=== PATIENT | male | born 1965 | race Caucasian/White ===

== ENCOUNTER 2017-09-15 13:18 | Outpatient (CLI) | payer OTHER ==
--- NOTE | 2017-09-15 13:53 | RAD ---
CHEST TWO VIEWS: History: Dyspnea. Comparison: None available. FINDINGS: Cardiac silhouette and pulmonary vasculature are unremarkable. Mediastinum is midline. No confluent a irspace consolidation, pneumothorax, or pleural fluid. IMPRESSION: No active cardiopulmonary abnormalities are demonstrated. POS: [facility]
== END 2017-09-15 13:19 | disposition home or self-care (01) ==
LOC: RAD 13:18
PROVIDERS: ATTEND Physician Assistant
DX: Z51.81 Encounter for therapeutic drug level monitoring (principal); Z79.899 Other long term (current) drug therapy
CPT/HCPCS: 71046

== ENCOUNTER 2018-10-25 07:39 | Outpatient (CLI) | payer OTHER ==
--- NOTE | 2018-10-25 10:10 | RAD ---
XR Chest Pa Lat STANDARD HISTORY: Cough COMPARISON: 09/15/2017 FINDINGS: The heart size is normal. The lungs are well expanded without focal areas of consolidation, pneumothorax or pleural effusions. IMPRESSION: No radiographic evidence of acute cardiopulmonary process.
== END 2018-10-25 07:40 | disposition home or self-care (01) ==
LOC: RAD 07:39
PROVIDERS: ATTEND Internal Medicine
DX: R05 Cough (principal)
CPT/HCPCS: 71046

== ENCOUNTER 2019-02-28 08:35 | Outpatient (CLI) | payer OTHER ==
[2019-02-28 10:45] LABS: Bacteria/HPF None Seen HPF (None Seen); Bilirubin Negative (Negative); Blood, Urine Negative (Negative); Clarity Clear (Clear); Glucose, Urine (Dipstick) Normal (Negative); Leukocyte Negative Leu/uL (Negative); Nitrite Negative (Negative); Protein, Urine (Dipstick) Negative (Neg-Trace); RBC/HPF 0-3 HPF (0-3); Squamous Epithelial None Seen HPF (0-3); Urobilinogen Normal mg/dL (Less than 2); WBC/HPF 0-3 HPF (0-3)
[2019-02-28 10:48] LABS: Prothrombin Time 12.7 SEC (12.0-14.7)
== END 2019-02-28 08:36 | disposition home or self-care (01) ==
LOC: LABBT 08:35
PROVIDERS: ATTEND Orthopaedic Surgery
DX: Z01.818 Encounter for other preprocedural examination (principal); M17.12 Unilateral primary osteoarthritis, left knee
CPT/HCPCS: 81001; 85610; 87081; 93005; 93010

== ENCOUNTER 2019-02-28 13:30 | Inpatient (IN) | payer OTHER ==
[2019-02-28 09:51] VITALS: BMI 28.0
--- NOTE | 2019-03-07 12:45 | HP ---
Date is 03/12/2019. 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 He underwent open medial meniscectomy many years ago. He has gradually developed progressive pain and deformity despite rest, restriction of activities, previous injections and anti-inflammatory medications. The pain is now interfering with day-to-day activities including walking, getting dressed, and sleeping. PAST MEDICAL HISTORY: The patient has history of hypertension, has had multiple arthralgias, multiple joints following previous injuries to not only his left knee, but also right ankle, right knee and right shoulder. He has had a diagnosis of possible connective tissue disease and has been treated by Dr. Cheek with methotrexate and he also has history of hypertension. CURRENT MEDICATIONS: Include; 1. Lisinopril. 2. Lipitor. 3. Lyrica. 4. Low-dose aspirin. 5. Prilosec. 6. Lexapro. 7. Hydrocodone. 8. Methotrexate. He has stopped methotrexate in anticipation of surgery. ALLERGIES: HE HAS NO KNOWN ALLERGIES. FAMILY HISTORY: Otherwise unremarkable. SOCIAL HISTORY: Otherwise unremarkable. REVIEW OF SYSTEMS: Otherwise unremarkable. PHYSICAL EXAMINATION: GENERAL: Reveals a healthy male. HEENT: Unremarkable. NECK: Supple. CHEST: Clear. HEART: Regular rate, rhythm. ABDOMEN: Soft, nontender. RECTAL: Deferred. GENITAL: Deferred. EXTREMITIES: Pertinent findings of left knee. There is moderate varus deformity. There is a well-healed medial incision. There is tenderness and crepitus over the medial joint line. Range of motion is 0 to 135 degrees. There is crepitus with motion. There is probably antalgic gait. Neurovascular exam is intact. There are palpable distal pulses. DIAGNOSTIC STUDIES: X-rays of the left knee reveal [id number] collapse medially. There is also soft tissue swelling laterally consistent with a parameniscal cyst. There is progression of degenerative changes from previous x-rays. IMPRESSION: Posttraumatic degenerative arthritis, left knee. PLAN: Left total knee replacement. The nature of the surgery, length of recovery, and potential complications such as infection, loss of motion, incomplete relief, delayed wound healing, neurovascular injury, thromboembolic phenomena, possible transfusion, need for revision have been discussed in detail. Job ID: [id number]
[2019-03-12] MEDS ORDERED: Tranexamic Acid 1,000 MG/10 ML VIAL ONE ×2 (05:56→08:54)
[2019-03-12] MEDS ORDERED: Vancomycin 1.5 GRAM/300 ML BAG 1.5 GM/300 ML BAG ONE (05:56)
[2019-03-12] MEDS ORDERED: Sodium Chloride 0.9% 100 ML ONE (05:56)
[2019-03-12] MEDS ORDERED: Bupivacaine 0.25% HCL 30 ML VIAL ONE (06:22)
[2019-03-12] MEDS ORDERED: Lidocaine 1% w/Epinephrine 1:100K 20 ML VIAL ONE (06:22)
[2019-03-12] MEDS ORDERED: Fentanyl 100 MCG/2 ML VIAL ONE ×3 (06:29→09:00)
[2019-03-12] MEDS ORDERED: Midazolam HCl 2 mg/2 ml Vial ONE (06:29)
[2019-03-12] MEDS ORDERED: Acetaminophen 325 MG TAB PO PRN ×2 (07:21→10:01)
[2019-03-12] MEDS ORDERED: Zolpidem Tartrate 5 MG TAB PO PRN ×3 (07:21→10:45)
[2019-03-12] MEDS ORDERED: Promethazine HCl 25 MG/ML VIAL IM PRN ×2 (07:21→08:47)
[2019-03-12] MEDS ORDERED: traMADol HCl 50 MG TAB PO PRN ×3 (07:21→10:01)
[2019-03-12] MEDS ORDERED: HYDROcodone/Acetaminophen 10/325 mg Tablet PO PRN ×3 (07:21→10:01)
[2019-03-12] MEDS ORDERED: Ropivacaine HCl/PF 250 ML in Premix Bag 1 BAG NERVE BLCK SCH (07:21)
[2019-03-12] MEDS ORDERED: Ondansetron PF 4 MG/2 ML Vial IVP PRN ×2 (07:21→10:01)
[2019-03-12] MEDS ORDERED: Fentanyl 100 MCG/2 ML VIAL SLOW IVP PRN ×3 (07:22→10:01)
[2019-03-12] MEDS ORDERED: Tranexamic Acid 1,000 MG in Sodium Chloride 0.9% 100 ML IVPB SCH ×2 (08:45→10:01)
[2019-03-12] MEDS ORDERED: Promethazine HCl 25 MG/ML VIAL SLOW IVP PRN ×2 (08:47→10:01)
[2019-03-12] MEDS ORDERED: Ondansetron HCl/PF 4 MG/2 ML Vial IVP PRN (08:47)
[2019-03-12] MEDS ORDERED: Ketorolac Tromethamine 30 MG/ML VIAL ONE (08:59)
--- NOTE | 2019-03-12 09:05 | RAD ---
XR Knee Lt 2 View: 03/12/2019 8:45 AM CLINICAL INDICATION: Left total knee arthroplasty COMPARISON: None. FINDINGS: Bones: No acute fracture is demonstrated. There is a left total knee prosthesis that projects in exp ected position. Joints: There is scattered intra-articular and periarticular soft tissue gas.. Soft Tissue: There is periarticular soft tissue gas consistent patient's recent postoperative state. IMPRESSION: Left total knee arthroplasty. Prosthetic components project in the expected position..
[2019-03-12] MEDS ORDERED: Non-Formulary Item 1 EACH (Eszopiclone [Eszopiclone] 1 TAB) PO PRN (10:01)
[2019-03-12] MEDS ORDERED: diphenhydrAMINE 25 MG CAP PO PRN (10:01)
[2019-03-12] MEDS ORDERED: Ondansetron PF 4 MG/2 ML Vial ONE (10:05)
[2019-03-12] MEDS ORDERED: PHENYLEPHRINE-NS 100 MCG/ML 10 ML SYRINGE ONE (10:05)
[2019-03-12] MEDS ORDERED: Dexamethasone 20 MG/5 ML VIAL ONE (10:05)
[2019-03-12] MEDS ORDERED: PROPOFOL 200 MG/20 ML VIAL ONE (10:05)
[2019-03-12] MEDS ORDERED: Lidocaine 1% PF 5 ML VIAL ONE (10:05)
[2019-03-12] MEDS: Ketorolac Tromethamine 30 MG/ML VIAL IVP SCH ×3 (11:08→23:26)
[2019-03-12] MEDS: Sodium Chloride 0.9% 1,000 ML IV SCH ×2 (11:11→21:00)
[2019-03-12] MEDS ORDERED: Bupivacaine HCl 0.5%/Epinephrine 1:200,000/PF 30 ml Vial ONE (12:40)
[2019-03-12] MEDS ORDERED: Ropivacaine 0.2% HCl/PF (40 MG/20 ML VIAL) ONE (12:40)
--- NOTE | 2019-03-12 13:24 | OP ---
DATE OF PROCEDURE: 03/12/2019 HAT PRESSER: Varun Barahona MD ANESTHESIA: General plus adductor canal and sciatic nerve blocks. PREOPERATIVE DIAGNOSIS: Post-traumatic degenerative arthritis, left knee. POSTOPERATIVE DIAGNOSIS: Post-traumatic degenerative arthritis, left knee. PROCEDURE PERFORMED: Left total knee replacement with computer-assisted navigation with cemented Sofia Triathlon components (#5 femoral component, #6 primary tibial baseplate with 13 mm CS plastic insert, and all-plastic A35 patellar component). DESCRIPTION OF PROCEDURE: After satisfactory anesthesia was induced in supine position, sequential compression devices were placed on the nonoperative leg throughout the procedure. The left leg was then prepped and draped in routine sterile fashion. The limb was elevated and exsanguinated with an Esmarch bandage and the tourniquet inflated to 300 mmHg. A gently curved medial parapatellar incision was made incorporating the previous medial incision for previous meniscectomy. Full-thickness skin flaps were developed. The bleeding points were controlled with Bovie cautery. Medial parapatellar arthrotomy was performed and patella was cleared laterally and portion of the fat pad were excised for exposure. There was marked degenerative arthritis of the knee especially medially with large areas of exposed bone. Meniscal remnants and osteophytes were removed. Using the [employer] pinless navigation system and the appropriate guides, the distal femoral and proximal tibial articular surfaces were excised with an oscillating saw to the accept the trial components. It was felt that #5 femoral component and #6 tibial baseplate with 13 mm CS plastic insert gave appropriate size, fit, stability, and correction of the preoperative deformity. The patellar articular surface was excised to accept an all-plastic A35 patellar component. There was good range of motion and good patellar tracking. The trial components were removed. The knee was copiously irrigated with pulsatile lavage and the bony surface was thoroughly cleaned and dried. The permanent components were then cemented in a single stage using one pack of cement premixed with 1 g of tobramycin powder. Excess cement was removed. There was again good fit and stability of the components. The knee was again copiously irrigated. The medial retinaculum and quadriceps mechanism was closed with interrupted #2 Vicryl and a running #2 Quill. Subcutaneous tissues were closed with a running 0 Quill suture. The skin was infiltrated with a mixture of 30 mL of 0.25% Marcaine and 30 mL of 1% lidocaine with epinephrine. The skin was closed with running subcuticular 3-0 Monoderm and SurgiSeal skin adhesive. A sterile bulky compressive dressing was applied. The tourniquet deflated after 60 minutes. The foot promptly pinked up. A sequential compression device was applied to his operated leg and he was awakened and taken to the recovery room in stable condition. There were no apparent intraoperative complications. The estimated blood loss was less than 100 mL. Job ID: [id number]
[2019-03-12] MEDS: Pregabalin 75 MG CAP PO SCH ×2 (13:57→21:00)
[2019-03-12] MEDS: CEFAZOLIN 2 GM in Premix Bag 1 BAG IVPB SCH ×2 (14:00→20:58)
[2019-03-12] MEDS: HYDROcodone/Acetaminophen 10/325 mg Tablet PO PRN ×2 (14:31→21:03)
[2019-03-12] MEDS ORDERED: Ketorolac Tromethamine 30 MG/ML VIAL IVP PRN (15:00)
[2019-03-12] MEDS ORDERED: Vancomycin 1.5 GRAM/300 ML BAG 1.5 GM in Premix Bag 1 BAG IVPB SCH (18:00)
[2019-03-12] MEDS: Aspirin 81 mg Enteric Coated Tablet PO SCH (21:00)
[2019-03-12] MEDS ORDERED: Rosuvastatin 5 MG TAB PO SCH (21:00)
[2019-03-12] MEDS: Senokot S 8.6-50 MG TAB PO SCH (21:01)
[2019-03-13 05:27] LABS: Hemoglobin 11.7 g/dL (14.0-18.0); Mean Corpuscular HGB CONC 33.5 g/dL (32.0-36.0); Mean Corpuscular Hemoglobin 32.9 pg (27.0-31.0); Mean Corpuscular Volume 98.3 fL (78.0-98.0); Mean Platelet Volume 7.3 fL (7.4-10.4); Platelet Count 219 thou/uL (130-400); RBC Distribution Width 12.7 % (11.5-14.5); Red Blood Cell (RBC) Count 3.55 mill/uL (4.70-6.10); White Blood Cell (WBC) Count 9.7 thou/uL (4.8-10.8)
[2019-03-13] MEDS: Ketorolac Tromethamine 30 MG/ML VIAL IVP SCH ×2 (05:58→11:12)
[2019-03-13] MEDS: Sodium Chloride 0.9% 1,000 ML IV SCH (06:05)
[2019-03-13] MEDS: HYDROcodone/Acetaminophen 10/325 mg Tablet PO PRN ×2 (06:21→09:42)
[2019-03-13 07:47] VITALS: TEMP 98
[2019-03-13] MEDS ORDERED: lamoTRIgine 100 MG TAB PO SCH (09:00)
[2019-03-13] MEDS ORDERED: Amlodipine 5 MG TAB PO SCH (09:00)
[2019-03-13] MEDS ORDERED: Escitalopram Oxalate 10 mg Tablet PO SCH (09:00)
[2019-03-13] MEDS ORDERED: Multivitamin W/ Minerals 1 TAB PO SCH (09:00)
[2019-03-13] MEDS ORDERED: Lisinopril 20 MG TAB PO SCH (09:00)
[2019-03-13] MEDS: Aspirin 81 mg Enteric Coated Tablet PO SCH (09:05)
[2019-03-13] MEDS: Pregabalin 75 MG CAP PO SCH (09:05)
[2019-03-13] MEDS: Senokot S 8.6-50 MG TAB PO SCH (09:05)
[2019-03-13 09:08] VITALS: BP 139/84
[2019-03-13] MEDS ORDERED: Ropivacaine 0.2% 550 ML 550 ML NERVE BLCK SCH (09:57)
[2019-03-13] MEDS ORDERED: tiZANidine HCl 4 MG TAB PO PRN (12:21)
--- NOTE | 2019-03-13 13:05 | DIS ---
DATE OF ADMISSION: 03/12/2019 DATE OF DISCHARGE: 03/13/2019 This is Oksana Viveros PA-C dictating a report for Samuel Martinez MD. CONSULTANTS ON THE CASE: Include [facility] and [facility]. PREOPERATIVE DIAGNOSIS: Posttraumatic degenerative arthritis, left knee. POSTOPERATIVE DIAGNOSIS: Posttraumatic degenerative arthritis, left knee. PROCEDURE PERFORMED: Left total knee replacement with computer-assisted navigation with cemented Sofia triathlon components. BRIEF HOSPITAL COURSE: This is a 53-year-old male, who failed conservative management. He was indicated for the above-mentioned procedure. He did well in the operative suite and postoperatively, was admitted to [address] worked with physical and occupational therapist. His pain was managed by [facility]. He worked well with physical therapist on the day of surgery, getting out of bed as well as postoperatively on postop day #1. He was felt to be ready for home, discharged with outpatient physical therapy. There were no complications incurred during his hospital stay. DISCHARGE DISPOSITION: Home with outpatient home health physical therapy. DISCHARGE CONDITION: Stable. DISCHARGE INSTRUCTIONS: The patient will follow up with Dr. Martinez as scheduled. He will keep his surgical site clean, dry, and intact until followup. DISCHARGE MEDICATIONS: See MAR. Job ID: [id number]
== END 2019-03-13 13:15 | disposition home or self-care (01) | DRG 470 ==
LOC: INTOOBSV 03-12 05:43 → OBSVTOIN 03-12 05:43 → SURG A 03-12 05:43 → SJJU 03-12 09:57
PROVIDERS: ADMIT Orthopaedic Surgery; ATTEND Orthopaedic Surgery
PROC: 0SRD0J9 Replacement of Left Knee Joint with Synthetic Substitute, Cemented, Open Approach (ICD-10-PCS; principal; 2019-03-12)
PROC: 8E0YXBZ Computer Assisted Procedure of Lower Extremity (ICD-10-PCS; 2019-03-12)
DX: M17.32 Unilateral post-traumatic osteoarthritis, left knee (principal); I10 Essential (primary) hypertension; Z79.899 Other long term (current) drug therapy
CPT/HCPCS: 36415; 85027; A4306; C1713; C1776; J0670; J0690; J1100; J1885; J2001; J2250; J2405; J2704; J2795; J3010; J3490; S0020

== ENCOUNTER 2023-10-26 10:02 | Day surgery (SDC) | payer BC ==
[2023-10-25 13:19] VITALS: BMI 26.8
[2023-10-26] MEDS ORDERED: Midazolam HCl 2 mg/2 ml Vial ONE (10:39)
[2023-10-26] MEDS ORDERED: Bupivacaine PF 0.5% 30 ML VIAL ONE (10:39)
[2023-10-26] MEDS ORDERED: fentaNYL 50 mcg/mL 1 mL Vial ONE ×5 (10:39→15:30)
[2023-10-26 10:53] LABS: Hematocrit 40.7 % (42.0-52.0); Hemoglobin 13.9 g/dL (14.0-18.0); Mean Corpuscular HGB CONC 34.2 g/dL (32.0-36.0); Mean Corpuscular Hemoglobin 34.2 pg (27.0-31.0); Mean Corpuscular Volume 100.2 fL (78.0-98.0); Mean Platelet Volume 10.6 fL (7.4-10.4); Platelet Count 226 10x3/uL (130-400); RBC Distribution Width 13.3 % (11.5-14.5); Red Blood Cell (RBC) Count 4.06 mill/uL (4.70-6.10)
[2023-10-26] MEDS ORDERED: Vancomycin 1 GM VIAL ONE (11:52)
[2023-10-26] MEDS ORDERED: fentaNYL 50 mcg/mL 1 mL Vial SLOW IVP PRN (11:58)
[2023-10-26] MEDS ORDERED: PROPOFOL 20 ML ONE (11:59)
[2023-10-26] MEDS ORDERED: Promethazine HCl 25 MG/ML VIAL IM PRN (12:00)
[2023-10-26] MEDS ORDERED: Ondansetron PF 4 MG/2 ML Vial IVP PRN (12:00)
[2023-10-26] MEDS ORDERED: Ropivacaine 0.2% 550 ML 550 ML NERVE BLCK SCH ×2 (12:00→12:15)
[2023-10-26] MEDS ORDERED: Ketorolac Tromethamine 30 MG (1 mL) VIAL IVP SCH (12:00)
[2023-10-26] MEDS ORDERED: traMADol HCl 50 MG TAB PO PRN ×2 (12:00)
[2023-10-26] MEDS ORDERED: HYDROcodone/Acetaminophen 10/325 mg Tablet PO PRN ×2 (12:00)
[2023-10-26] MEDS ORDERED: Zolpidem Tartrate 5 MG TAB PO PRN (12:00)
[2023-10-26] MEDS ORDERED: Lidocaine 1% PF 5 ML VIAL ONE (12:00)
[2023-10-26] MEDS ORDERED: CEFAZOLIN 2 GM VIAL ONE (12:14)
[2023-10-26] MEDS ORDERED: Sodium Chloride 0.9% 100 ML ONE (12:14)
[2023-10-26] MEDS ORDERED: Dexamethasone 20 MG/5 ML VIAL ONE (13:02)
[2023-10-26] MEDS ORDERED: PHENYLEPHRINE-NS 100 MCG/ML 10 ML SYRINGE ONE (13:28)
[2023-10-26] MEDS ORDERED: Ondansetron PF 4 MG/2 ML Vial ONE ×2 (15:04→16:15)
[2023-10-26] MEDS ORDERED: Ketorolac Tromethamine 30 MG (1 mL) VIAL ONE (15:04)
[2023-10-26] MEDS ORDERED: HYDROmorphone 0.5 MG/0.5 ML SYRINGE ONE (15:30)
[2023-10-26] MEDS ORDERED: HYDROcodone/Acetaminophen 10/325 mg Tablet ONE (15:57)
== END 2023-10-26 16:53 | disposition home or self-care (01) ==
LOC: SDC 10:02
PROVIDERS: ATTEND Orthopaedic Surgery
PROC: 0SG Lower Joints, Fusion (ICD-10-PCS; principal; 2023-10-26)
PROC: 0SGJ07Z Fusion of Left Tarsal Joint with Autologous Tissue Substitute, Open Approach (ICD-10-PCS; principal; 2023-10-26)
DX: M19.072 Primary osteoarthritis, left ankle and foot (principal); Z88.2 Allergy status to sulfonamides; I10 Essential (primary) hypertension; E78.5 Hyperlipidemia, unspecified; F39 Unspecified mood [affective] disorder
CPT/HCPCS: 85027; 93005; 93010; A4306; C1713; J0665; J1100; J1170; J1885; J2250; J2405; J2704; J2795; J3010; J3370

== ENCOUNTER 2024-01-17 08:23 | Emergency (ER) | payer BC ==
[2024-01-17 08:47] LABS: #Basophils 0.03 10x3/uL (0.0-0.2); %Basophils 0.5 % (0.0-1.0); %Eosinophils 3.9 % (0.0-10.0); %Lymphocytes 34.5 % (21.0-51.0); %Monocytes 15.2 % (0.0-10.0); %Neutrophils 45.7 % (42.0-75.0); Hematocrit 42.7 % (42.0-52.0); Hemoglobin 15.3 g/dL (14.0-18.0); Mean Corpuscular HGB CONC 35.8 g/dL (32.0-36.0); Mean Corpuscular Hemoglobin 34.2 pg (27.0-31.0); Mean Corpuscular Volume 95.3 fL (78.0-98.0); Mean Platelet Volume 9.5 fL (7.4-10.4); Platelet Count 341 10x3/uL (130-400); RBC Distribution Width 12.5 % (11.5-14.5); Red Blood Cell (RBC) Count 4.48 mill/uL (4.70-6.10)
[2024-01-17 09:00] LABS: INR-International Normal Ratio 0.9
[2024-01-17 09:01] LABS: PTT 27.7 sec (22.9-36.1)
[2024-01-17 09:11] LABS: ALT (SGPT) 28 U/L (8-55); AST (SGOT) 30 U/L (5-34); Albumin 4.3 g/dL (3.5-5.0); Alkaline Phosphatase 91 U/L (40-110); Anion Gap 16 mmol/L (10-20); BUN (Urea Nitrogen) 11 mg/dL (8.4-25.7); Bilirubin, Total 0.8 mg/dL (0.2-1.2); Calc. Creatinine Clearance 0 mL/min (70-130); Calcium 10.4 mg/dL (7.8-10.44); Carbon Dioxide 21 mmol/L (22-29); Chloride 105 mmol/L (98-107); Estimated GFR 46; Globulin 3.6 g/dL (2.4-3.5); Glucose 97 mg/dL (70-105); Lipase 22 U/L (8-78); Magnesium 2.1 mg/dL (1.6-2.6); Potassium 4.6 mmol/L (3.5-5.1); Protein, Total 7.9 g/dL (6.0-8.3); Sodium 137 mmol/L (136-145)
[2024-01-17 10:06] LABS: Troponin I Less than 0.010 ng/mL (< 0.028)
[2024-01-17 11:34] LABS: Bacteria/HPF None Seen HPF (None Seen); Bilirubin Negative (Negative); Blood, Urine Negative (Negative); CAUTI Indications for Culture Alt mental st,lethar; Clarity Clear (Clear); Glucose, Urine (Dipstick) Normal (Negative); Ketone, Urine Negative (Negative); Leukocyte Negative Leu/uL (Negative); Nitrite Negative (Negative); Protein, Urine (Dipstick) Negative (Neg-Trace); RBC/HPF None Seen HPF (0-3); Specific Gravity, Urine 1.016 (1.002-1.036); Squamous Epithelial None Seen HPF (0-3); Urobilinogen Normal mg/dL (Less than 2); WBC/HPF None Seen HPF (0-3); pH, Urine 7.5 (5.0-9.0)
[2024-01-17 12:04] LABS: Urine Culture Reflex No No
[2024-01-17] MEDS ORDERED: Iopamidol-370 76% 500 ML MDV (1 ML CHARGE) ONE (14:54)
== END 2024-01-17 12:57 | disposition home or self-care (01) ==
LOC: ERS 08:23
DX: J18.9 Pneumonia, unspecified organism (principal); N17.9 Acute kidney failure, unspecified; I10 Essential (primary) hypertension
CPT/HCPCS: 36416; 70450; 71045; 71275; 81001; 83605; 83690; 83735; 83880; 84443; 84484; 85025; 85610; 85730; 86850; 86900; 86901; 87040; 87086; 87428; 93005; 94760; Q9967